=== PATIENT | female | born 1985 | race American Indian/Alaskan Native ===

== ENCOUNTER 2022-04-02 18:16 | Emergency (ER) | payer MEDICAID, SELFPAY ==
[~2022-04-02 18:16] MED LIST: Sodium Chloride 0.9% 10 ML Syringe FLUSH PRN
[2022-04-02 18:57] LABS: ANION GAP 13.3 mEq/L (7-13)
[2022-04-02 19:00] LABS: PTT,PARTIAL THROMBOPLSTIN TIME 23.2 SEC (22.0-34.0)
[2022-04-02 19:45] LABS: AMPHETAMINES,URINE NEGATIVE (NEGATIVE); BARBITURATES,URINE NEGATIVE (NEGATIVE); BENZODIAZEPINE,URINE NEGATIVE (NEGATIVE); MDMA (ECSTASY), URINE NEGATIVE (NEGATIVE); METHADONE,URINE NEGATIVE (NEGATIVE); METHAMPHETAMINES,URINE NEGATIVE (NEGATIVE); OPIATES,URINE NEGATIVE (NEGATIVE); OXYCODONE,URINE NEGATIVE (NEGATIVE); PHENCYCLIDINE,URINE NEGATIVE (NEGATIVE); TCA,URINE NEGATIVE (NEGATIVE)
== END 2022-04-02 19:35 | disposition home or self-care (01) ==
LOC: DL.ED 18:16
DX: S00.03XA Contusion of scalp, initial encounter (principal); F10.920 Alcohol use, unspecified with intoxication, uncomplicated; Y90.8 Blood alcohol level of 240 mg/100 ml or more; Z88.1 Allergy status to other antibiotic agents; W22.8XXA Striking against or struck by other objects, initial encounter
CPT/HCPCS: 36415; 70450; 72125; 80053; 80305; 80307; 81001; 81025; 85025; 85610; 85730; 99285; J3490

== ENCOUNTER → 2023-11-29 20:37 | Emergency (ER) | payer SELFPAY | END | disposition left against medical advice (07) | LOC: DL.ED 20:37 | DX: Z53.21 Procedure and treatment not carried out due to patient leaving prior to being seen by health care provider (principal) ==